=== PATIENT | male | born 1995 | race Caucasian/White ===

== ENCOUNTER → 2016-04-02 | Outpatient (CLI) | payer BC ==
--- NOTE | 2016-04-02 15:02 | DIAGNOSTIC IMAGING REPORT ---
LEFT TIBIA/FIBULA 4 VIEWS HISTORY: Left Leg pain, anterior COMPARISON: None. FINDINGS: Small focal area of periosteal thickening at the medial shaft of the mid tibia. No fractures identified within the fibula. No dislocation. Soft tissues are unremarkable. No radiopaque foreign bodies. IMPRESSION: Small focal area of periosteal thickening at the medial shaft of the mid tibia. This could represent a developing stress fracture. Recommend a left lower leg MRI for confirmation. Electronically signed by: Elías Frank M.D. 04/02/2016 3:00 PM Dictated Date/Time: 04/02/2016 2:57 PM
== END | disposition home or self-care (01) ==
LOC: C.RADBC 14:13
PROVIDERS: ATTEND Internal Medicine
DX: M79.605 Pain in left leg (principal)